=== PATIENT | male | born 1980 | race Two or more races ===

== ENCOUNTER 2021-12-26 10:34 | Outpatient (CLI) | payer OTHER | END 2021-12-26 10:59 | disposition home or self-care (01) | LOC: SONOGRAMA 10:34 | PROVIDERS: ATTEND General Practice | DX: Z11.3 Encounter for screening for infections with a predominantly sexual mode of transmission (principal); Z11.4 Encounter for screening for human immunodeficiency virus [HIV]; Z11.1 Encounter for screening for respiratory tuberculosis; Z12.11 Encounter for screening for malignant neoplasm of colon; Z12.5 Encounter for screening for malignant neoplasm of prostate; Z13.0 Encounter for screening for diseases of the blood and blood-forming organs and certain disorders involving the immune mechanism; Z13.1 Encounter for screening for diabetes mellitus; Z13.220 Encounter for screening for lipoid disorders; Z13.228 Encounter for screening for other metabolic disorders; R05.9 Cough, unspecified; M25.512 Pain in left shoulder; M62.830 Muscle spasm of back; M54.40 Lumbago with sciatica, unspecified side; M54.42 Lumbago with sciatica, left side; R10.9 Unspecified abdominal pain ==

== ENCOUNTER 2022-02-09 12:49 | Emergency (ER) | payer OTHER ==
[~2022-02-09] VITALS: Ht 175.3 cm; Wt 90.7 kg
== END 2022-02-09 14:28 | disposition home or self-care (01) ==
LOC: ER 12:49
DX: H60.8X1 Other otitis externa, right ear (principal)

== ENCOUNTER 2023-05-08 08:47 | Outpatient (CLI) | payer OTHER ==
[2023-05-08 09:55] LABS: HEMATOCRIT 46.2 % (39.0-48.0); HEMOGLOBIN 15.5 g/dL (13-16.00); MEAN CELL VOLUME 88.5 fL (80.0-100.00); MEAN CORPUSCULAR HEMOGLOBIN 29.8 pg (27.00-32.0); MEAN CORPUSCULAR HGB CONC 33.7 g/dl (32.0-36.0); PLATELET COUNT 282 K/uL (150-450); RED BLOOD COUNT 5.22 M/uL (4.00-6.00); RED CELL DISTRIBUTION WIDTH 14.2 % (11.5-14.5)
[2023-05-08 10:26] LABS: ALBUMIN 3.9 gm/dL (3.4-5.0); BILIRUBIN TOTAL 1.04 mg/dL (0.3-1.2); CALCIUM 8.7 mg/dL (8.5-10.1); CREATININE SERUM 1.11 mg/dL (0.70-1.30); GFR 72.3; GLOBULINA 3.5 G/DL (2.4-3.5); POTASSIUM 4.43 mEq/L (3.5-5.1); TOTAL PROTEIN 7.4 gm/dL (6.4-8.2)
[2023-05-09 09:08] LABS: hav igm Negative (Negative); hcv Non Reactive (Non Reactive); hep b c Negative (Negative)
== END 2023-05-08 08:49 | disposition home or self-care (01) ==
LOC: LAB 08:47
PROVIDERS: ATTEND General Practice
DX: R10.9 Unspecified abdominal pain (principal); H57.9 Unspecified disorder of eye and adnexa; Z13.1 Encounter for screening for diabetes mellitus; Z13.220 Encounter for screening for lipoid disorders; Z13.228 Encounter for screening for other metabolic disorders; Z12.5 Encounter for screening for malignant neoplasm of prostate; Z12.11 Encounter for screening for malignant neoplasm of colon; Z11.3 Encounter for screening for infections with a predominantly sexual mode of transmission

== ENCOUNTER 2023-05-08 08:59 | Outpatient (CLI) | payer OTHER | END 2023-05-08 09:35 | disposition home or self-care (01) | LOC: TOM 08:59 | PROVIDERS: ATTEND General Practice | DX: R10.9 Unspecified abdominal pain (principal); H57.9 Unspecified disorder of eye and adnexa; Z13.1 Encounter for screening for diabetes mellitus; Z13.220 Encounter for screening for lipoid disorders; Z13.228 Encounter for screening for other metabolic disorders; Z12.5 Encounter for screening for malignant neoplasm of prostate; Z12.11 Encounter for screening for malignant neoplasm of colon; Z11.3 Encounter for screening for infections with a predominantly sexual mode of transmission ==

== ENCOUNTER 2023-08-28 10:37 | Emergency (ER) | payer OTHER ==
[~2023-08-28] VITALS: Ht 175.3 cm; Wt 81.6 kg
[2023-08-28 13:24] LABS: HEMATOCRIT 50.3 % (39.0-48.0); HEMOGLOBIN 16.7 g/dL (13-16.00); MEAN CELL VOLUME 89.6 fL (80.0-100.00); MEAN CORPUSCULAR HEMOGLOBIN 29.7 pg (27.00-32.0); MEAN CORPUSCULAR HGB CONC 33.2 g/dl (32.0-36.0); PLATELET COUNT 266 K/uL (150-450); RED BLOOD COUNT 5.62 M/uL (4.00-6.00); RED CELL DISTRIBUTION WIDTH 14.6 % (11.5-14.5)
[2023-08-28 13:45] LABS: CALCIUM 8.8 mg/dL (8.5-10.1); CREATININE SERUM 0.88 mg/dL (0.70-1.30); GFR 94.52; POTASSIUM 4.47 mEq/L (3.5-5.1)
[2023-08-28 18:04] LABS: HEMATOCRIT 47.5 % (39.0-48.0); HEMOGLOBIN 15.9 g/dL (13-16.00); MEAN CORPUSCULAR HEMOGLOBIN 30.5 pg (27.00-32.0); MEAN CORPUSCULAR HGB CONC 33.5 g/dl (32.0-36.0); PLATELET COUNT 276 K/uL (150-450); RED BLOOD COUNT 5.23 M/uL (4.00-6.00); RED CELL DISTRIBUTION WIDTH 14.5 % (11.5-14.5)
== END 2023-08-28 18:55 | disposition home or self-care (01) ==
LOC: ER 10:38
PROVIDERS: Emergency Medicine; General Practice
DX: R11.10 Vomiting, unspecified (principal); Z20.822 Contact with and (suspected) exposure to COVID-19

== ENCOUNTER 2023-09-09 13:29 | Inpatient (IN) | payer OTHER ==
[~2023-09-09] VITALS: Ht 175.3 cm; Wt 78.0 kg
[2023-09-09 15:03] LABS: HEMATOCRIT 51.6 % (39.0-48.0); HEMOGLOBIN 17.4 g/dL (13-16.00); MEAN CELL VOLUME 88.7 fL (80.0-100.00); MEAN CORPUSCULAR HGB CONC 33.8 g/dl (32.0-36.0); PLATELET COUNT 254 K/uL (150-450); RED BLOOD COUNT 5.82 M/uL (4.00-6.00); RED CELL DISTRIBUTION WIDTH 14.4 % (11.5-14.5)
[2023-09-09 16:05] LABS: ALBUMIN 3.6 gm/dL (3.4-5.0); BILIRUBIN TOTAL 0.48 mg/dL (0.3-1.2); BILIRUBIN,CONJUGATED 0.14 mg/dL (0.0-0.2); BILIRUBIN,UNCONJUGATED 0.34 mg/dL (0.0-0.6); CALCIUM 8.9 mg/dL (8.5-10.1); CREATININE SERUM 1.01 mg/dL (0.70-1.30); GFR 80.62; GLOBULINA 4.4 G/DL (2.4-3.5); POTASSIUM 4.14 mEq/L (3.5-5.1)
[2023-09-09 20:33] LABS: INR 1.04; PARTIAL THROMBOPLASTIN TIME 34.3 SECONDS (22.0-34.0); PROTHROMBIN TIME 10.9 SECONDS (9.0-11.5)
[2023-09-10 14:30] LABS: URINE APPEARANCE Cloudy; URINE BILIRRUBIN Negative (NEGATIVE); URINE BLOOD Negative; URINE COLOR Yellow; URINE LEUKOCYTE Negative; URINE NITRATE Negative; URINE PROTEIN 30 (NEGATIVE); URINE UROBILINOGEN 0.2 E.U./dl
[2023-09-10 14:31] LABS: URINE BACTERIA 13.8 uL (0.0-1933); URINE EPITHELIAL CELLS 26.1 uL (0.0-38.8); URINE RBC 8.9 uL (0.0-20.8); URINE WBC 7.5 uL (0.0-23.2)
[2023-09-10 14:34] LABS: URINE GLUCOSE 100 MG/DL (NEGATIVE)
== END 2023-09-11 13:53 | disposition home or self-care (01) | DRG 446 ==
LOC: ER 13:29 → MEDI 19:30 → SEC-K 19:30 → MEDI 21:07
PROVIDERS: General Practice; ADMIT Internal Medicine Pulmonary Disease; ATTEND Internal Medicine Pulmonary Disease
PROC: BW40ZZZ Ultrasonography of Abdomen (ICD-10-PCS; principal; 2023-09-09)
PROC: BF37YZZ Magnetic Resonance Imaging (MRI) of Pancreas using Other Contrast (ICD-10-PCS; 2023-09-09)
DX: K81.0 Acute cholecystitis (principal); K29.70 Gastritis, unspecified, without bleeding

== ENCOUNTER 2024-02-16 10:51 | Outpatient (CLI) | payer OTHER | END 2024-02-16 11:05 | disposition home or self-care (01) | LOC: MRI 10:51 | PROVIDERS: ATTEND General Practice | DX: M54.41 Lumbago with sciatica, right side (principal); M54.50 Low back pain, unspecified | CPT/HCPCS: 72148 ==